=== PATIENT | female | born 1975 | race Caucasian/White ===

== ENCOUNTER 2020-10-20 13:45 | Emergency (ER) | payer OTHER ==
[2020-10-20] MEDS ORDERED: ONDANSETRON *ODT* 4 MG TABLET SL ONE (13:56)
[2020-10-20 14:10] VITALS: BP 150/89; PULSE 67; TEMP 97.9; BMI 33.2
[2020-10-20] MEDS ORDERED: ONDANSETRON *ODT* 4 MG TABLET ONE ×2 (14:10→14:15)
== END 2020-10-20 15:57 | disposition home or self-care (01) ==
LOC: FER 13:45
DX: R10.9 Unspecified abdominal pain (principal)
CPT/HCPCS: 99283-25; Q0162

== ENCOUNTER 2024-03-18 22:38 | Emergency (ER) | payer OTHER ==
[2024-03-18 22:50] VITALS: BP 161/96; PULSE 79; RESP 18; TEMP 98.4; BMI 33.2
[2024-03-18 23:25] LABS: HEMATOCRIT 42.1 % (32.4-45.2); HEMOGLOBIN 14.3 G/dL (10.7-15.3); MCH 29.8 pg (25.7-33.7); MCHC 33.9 g/dl (32.0-36.0); MEAN CELL VOLUME 87.9 fl (80-96); MEAN PLT VOLUME 10.5 fl (7.5-11.1); PLATELET COUNT 189.9 10^3/uL (134-434); RBC 4.79 10^6/uL (3.60-5.2); RDW 14.3 % (11.6-15.6); WHITE BLOOD COUNT 6.8 10^3/uL (4.0-10.8)
[2024-03-18 23:44] LABS: ALBUMIN 3.9 g/dl (3.4-5.0); BILIRUBIN,TOTAL 0.4 mg/dl (0.2-1); CALCIUM 9.4 mg/dl (8.5-10.1); CREATININE 0.8 mg/dl (0.6-1.3); POTASSIUM 4.4 mmol/L (3.5-5.1); TOT PROT 6.8 g/dl (6.4-8.2)
[2024-03-18] MEDS ORDERED: PANTOPRAZOLE SODIUM 40 MG VIAL ONE (23:50)
[2024-03-18] MEDS: PANTOPRAZOLE SODIUM 40 MG VIAL IVPB ONE (23:54)
[2024-03-19] MEDS ORDERED: ACETAMINOPHEN INJECTION 100 ML ONE (00:16)
[2024-03-19] MEDS: ACETAMINOPHEN 1000 MG/100 ML BAG IVPB ONE (00:30)
[2024-03-19 02:04] LABS: HIV INTERPRETATION NEGATIVE (NEGATIVE)
== END 2024-03-19 02:13 | disposition home or self-care (01) ==
LOC: FER 22:38
PROC: 3E033GC Introduction of Other Therapeutic Substance into Peripheral Vein, Percutaneous Approach (ICD-10-PCS; 2024-03-18)
PROC: 3E033NZ Introduction of Analgesics, Hypnotics, Sedatives into Peripheral Vein, Percutaneous Approach (ICD-10-PCS; principal; 2024-03-19)
DX: K29.00 Acute gastritis without bleeding (principal); K76.0 Fatty (change of) liver, not elsewhere classified; R10.11 Right upper quadrant pain
CPT/HCPCS: 36415; 74176-TC; 76705-TC; 80053; 83690; 85027; 86803; 87389; 99284-25; J0131